=== PATIENT | male | born 1980 | race African-American/Black ===

== ENCOUNTER 2017-08-03 14:05 | Emergency (ER) | payer BC ==
[~2017-08-03] VITALS: Ht 180.3 cm; Wt 113.4 kg
[2017-08-03 14:06] VITALS: BP 151/87
[2017-08-03] MEDS ORDERED: ZOFRAN ODT4 MG PO (15:02)
[2017-08-03] MEDS ORDERED: PHENERGAN 25 MG25 M1 PO (15:02)
== END 2017-08-03 15:15 | disposition home or self-care (01) ==
LOC: ER 14:05
DX: J06.9 Acute upper respiratory infection, unspecified (principal); M79.1 Myalgia; R50.9 Fever, unspecified